=== PATIENT | male | born 1995 | race Hispanic/Latino ===

== ENCOUNTER 2017-06-18 00:51 | Emergency (ER) | payer SELFPAY ==
[2017-06-18] MEDS ORDERED: Ketorolac Tromethamine 30 MG/ML VIAL ONE (01:41)
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
== END 2017-06-18 02:50 | disposition home or self-care (01) ==
LOC: ERS 00:51
DX: M25.531 Pain in right wrist (principal)
CPT/HCPCS: 29105; 96372; J1885